=== PATIENT | female | born 1970 | race Caucasian/White ===

== ENCOUNTER 2016-09-15 18:46 | Emergency (ER) | payer MEDICAID, OTHER ==
[~2016-09-15] VITALS: Ht 160 cm; Wt 81.0 kg
[~2016-09-15 18:46] MED LIST: DIAZ5TAB PO
[2016-09-15 18:52] VITALS: BP 95/65; PULSE 83; RESP 18; TEMP 98.3; O2SAT 98
[2016-09-15] MEDS ORDERED: FLUT1SPR5 EACH NARE (20:46)
--- NOTE | 2016-09-15 20:46 | PD ---
HPI Chief Complaint: Cold / Flu Symptoms Time Seen by Provider: 20:44 Travel History International Travel<30 days: No Contact w/Intl Traveler<30days: No Traveled to known affect area: No History of Present Illness HPI 46-year-old female presents to the emergency department for evaluation of cough , nasal congestion, runny nose, and headache for 2 days. Patient also states she feels as though she has some swollen lymph nodes on her neck. She denies any fever, chills, nausea, vomiting, chest pain, shortness of breath, abdominal pain, diarrhea. States that she has taken ibuprofen and using Reshma pot with some improvement of symptoms. Denies any medical conditions. Denies any history of lung disease. Denies any smoking history. No recent travel or sick contacts. No other complaints. PFSH Past Medical History Anxiety: Yes Diminished Hearing: No ?: Not Past Surgical History Tonsillectomy: Yes Social History Alcohol Use: No Tobacco Use: No Substance Use: No Allergies-Medications (Allergen,Severity, Reaction): Coded Allergies: Clindamycin (Verified Allergy, Unknown, Itching, 09/15/16) Levaquin (Verified Allergy, Unknown, Itching, 09/15/16) Reported Meds & Prescriptions Reported Meds & Active Scripts Active Flonase Allergy Relief Nasal [place] (Fluticasone Nasal [place]) 50 Mcg/Act [place] 50 Mcg EACH NARE BID Reported Diazepam 5 Mg Tab 5 Mg PO BID PRN Review of Systems Except as stated in HPI: all other systems reviewed are Neg Physical Exam Narrative GENERAL: Well-nourished and well-developed pleasant female patient in no acute distress who is nontoxic appearing. SKIN: Warm and dry. HEAD: Normocephalic and atraumatic. EYES: No injection, drainage, or hyphema noted. PERRLA. EOMI. ENT: No nasal drainage noted. Oropharynx is clear and the TMs are normal with good landmarks. NECK: Supple and the trachea is midline. Positive anterior cervical lymphadenopathy. CARDIOVASCULAR: Regular rate and rhythm. RESPIRATORY: Breath sounds are equal bilaterally with no accessory muscle use, wheezing, rhonchi, or crackles. NEUROLOGICAL: Awake, alert, and oriented. Normal speech and gait. Cranial nerves are grossly intact. Data Data Last Documented VS Vital Signs Date Time Temp Pulse Resp B/P Pulse Ox O2 Delivery O2 Flow Rate FiO2 09/15/16 18:52 98.3 83 18 95/65 98 [facility] Medical Decision Making Medical Screen Exam Complete: Yes Emergency Medical Condition: Yes Differential Diagnosis Upper respiratory infection versus rhinitis versus rhinosinusitis versus bronchitis Narrative Course 46-year-old female presents to the emergency department for evaluation of cough and cold symptoms for 2 days. Patient is afebrile, vitals are stable. Physical examination is unremarkable. Patient appears very well overall. This is a viral upper respiratory infection. Discussed supportive care with the patient. Advised to follow-up with her PCP. Patient verbalizes understanding and agreement with treatment plan. Diagnosis Primary Impression: Upper respiratory infection Qualified Code: J06.9 - Upper respiratory tract infection, unspecified type Referrals: Primary Care Physician Patient Instructions: General Instructions, Upper Respiratory Infection (ED) Additional Instructions: Rest. Drink plenty of fluids. Take [id number]-[id number] Mucinex DM. Alternate Tylenol and ibuprofen as directed on the box as needed for headache. Use nasal spray as prescribed. Follow-up with your Primary Care Physician as needed. Return to the ED for any acute worsening of symptoms. Med/Other Pt SpecificInfo: No Change to Meds Scripts Fluticasone Nasal [place] (Flonase Allergy Relief Nasal [place])50 Mcg/Act Spray50 Mcg EACH NARE BID #1 BOTTLE Ref 0 Prov:Ruma Jaimes MD 09/15/16 Disposition: 01 DISCHARGE HOME Condition: Stable Leia Hastings Sep 15, 2016 20:46
[2016-09-15 21:04] VITALS: BP 98/56
== END 2016-09-15 21:06 | disposition home or self-care (01) ==
LOC: PHED 18:46
DX: J06.9 Acute upper respiratory infection, unspecified (principal); R51 Headache; R09.81 Nasal congestion
CPT/HCPCS: 99283

== ENCOUNTER 2016-09-25 17:17 | Emergency (ER) | payer OTHER, MEDICAID ==
[~2016-09-25] VITALS: Ht 160 cm; Wt 79.9 kg
[~2016-09-25 17:17] MED LIST changes: +FLUT1SPR5 EACH NARE
[2016-09-25 17:32] VITALS: BP 97/70; PULSE 81; RESP 16; TEMP 99.6; O2SAT 98
[2016-09-25] MEDS ORDERED: AMOX875T PO (19:30)
[2016-09-25] MEDS ORDERED: IBUP800T23 PO (19:30)
--- NOTE | 2016-09-25 19:30 | PD ---
HPI Chief Complaint: Facial Pain or Swelling Time Seen by Provider: 19:24 Travel History International Travel<30 days: No Contact w/Intl Traveler<30days: No Traveled to known affect area: No History of Present Illness HPI Patient is a 46-year-old female presenting to the emergency evaluation of jaw pain, sinus congestion. Patient states she's been sick for approximately 2 weeks. She states she was seen in the emergency department, she was not given any antibiotics. She continues to have sinus pain and pressure. She denies any dizziness, chest pain, shortness of breath, fever, chills, abdominal pain, nausea, vomiting. PFSH Past Medical History Anxiety: Yes Diminished Hearing: No Tetanus Vaccination: > 5 Years Influenza Vaccination: No ?: Not Past Surgical History Tonsillectomy: Yes Social History Alcohol Use: No Tobacco Use: No (QUIT 5 YRS AGO) Substance Use: No Allergies-Medications (Allergen,Severity, Reaction): Coded Allergies: Clindamycin (Verified Allergy, Unknown, Itching, 09/25/16) Levaquin (Verified Allergy, Unknown, Itching, 09/25/16) Reported Meds & Prescriptions Reported Meds & Active Scripts Active Reported Diazepam 5 Mg Tab 5 Mg PO BID PRN Review of Systems Except as stated in HPI: all other systems reviewed are Neg HENT: Positive: Headaches, Congestion, Earache (pressure) Cardiovascular: No: Chest Pain or Discomfort Respiratory: No: Shortness of Breath Gastrointestinal: No: Nausea, Vomiting, Abdominal Pain Physical Exam Narrative GENERAL: Well-nourished, well-developed patient. SKIN: Warm and dry. HEAD: Normocephalic. ENT: Mucosa pink and moist. No erythema or exudates. No uvular edema. No uvular , palatal, or tonsillar deviation. Airway patent. Nasal turbinates appear normal without nasal blood, purulent drainage or septal hematoma. Posterior pharynx with cobblestoning appearance. EARS: Bilateral pinnae and external canals appear within normal limits. Bilateral tympanic membranes without erythema, dullness or perforation. EYES: No scleral icterus. No injection or drainage. NECK: Supple, trachea midline. No JVD. Submandibular lymphadenopathy bilaterally. CARDIOVASCULAR: Regular rate and rhythm without murmurs, gallops, or rubs. RESPIRATORY: Breath sounds equal bilaterally. No accessory muscle use. GASTROINTESTINAL: Abdomen soft, non-tender, nondistended. MUSCULOSKELETAL: No cyanosis, or edema. BACK: Nontender without obvious deformity. No CVA tenderness. Data Data Last Documented VS Vital Signs Date Time Temp Pulse Resp B/P Pulse Ox O2 Delivery O2 Flow Rate FiO2 09/25/16 17:32 99.6 81 16 97/70 98 [facility] Medical Decision Making Medical Screen Exam Complete: Yes Emergency Medical Condition: Yes Interpretation(s) Vital Signs Date Time Temp Pulse Resp B/P Pulse Ox O2 Delivery O2 Flow Rate FiO2 09/25/16 17:32 99.6 81 16 97/70 98 Differential Diagnosis Sinusitis versus URI versus TMJ versus pharyngitis versus other Narrative Course Patient is a 46-year-old female presenting to the emergency room for evaluation of left jaw pain as well as sinus pressure and congestion. Patient's symptoms and ongoing for approximately 2 weeks. The jaw pain is been ongoing for about a week, patient states it comes and goes, it is worse when she tries to eat. Patient has used her Reshma pot does not use any gtyb-pzo-pemdwzk medications to alleviate the sinus congestion. At this point patient will be given a prescription for an antibiotic, she is encouraged to obtain [id number]-[id number]-[id number] Sudafed or similar agent and use as directed. Patient was encouraged return to the department for any new or worsening symptoms. Patient verbalized understanding of instructions. Diagnosis Primary Impression: Acute sinusitis Qualified Code: J01.90 - Acute sinusitis, recurrence not specified, unspecified location Additional Impression: TMJ arthralgia Qualified Code: M26.622 - Arthralgia of left temporomandibular joint Referrals: Primary Care Physician Patient Instructions: General Instructions, Sinusitis (ED) Additional Instructions: Follow-up with her primary doctor Take medications as directed Return to emergency department for any new or worsening symptoms Med/Other Pt SpecificInfo: Prescription(s) given Scripts Ibuprofen 800 Mg [id number] Mg PO Q8H PRN (Pain/Inflammation) 10 Days Ref 0 Prov:Ela Kingsley 09/25/16 Amoxicillin 875 Mg Cai105 Mg PO BID 10 Days Ref 0 Prov:Ela Kingsley 09/25/16 Disposition: 01 DISCHARGE HOME Condition: Stable Ela Kingsley Sep 25, 2016 19:30
== END 2016-09-25 19:46 | disposition home or self-care (01) ==
LOC: PHED 17:17 → PHEFT 19:46
DX: J01.90 Acute sinusitis, unspecified (principal); M26.622 Arthralgia of left temporomandibular joint
CPT/HCPCS: 99283

== ENCOUNTER 2016-12-04 19:16 | Emergency (ER) | payer OTHER, MEDICAID ==
[~2016-12-04] VITALS: Ht 160 cm; Wt 83.0 kg
[~2016-12-04 19:16] MED LIST changes: +AMOX875T PO; -FLUT1SPR5 EACH NARE; +IBUP800T23 PO
[2016-12-04 19:19] VITALS: BP 106/63; PULSE 56; RESP 14; TEMP 98.3; O2SAT 100
[2016-12-04] MEDS ORDERED: IBUPROFEN 800 MG TAB PO ONE (20:30)
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
[2016-12-04] MEDS ORDERED: ROBA500T PO (20:52)
[2016-12-04] MEDS ORDERED: IBUP800T23 PO (20:52)
[2016-12-04] MEDS ORDERED: METHOCARBAMOL 500 MG TAB PO SCH (22:00)
== END 2016-12-04 21:00 | disposition home or self-care (01) ==
LOC: PHEFT 19:16
DX: S16.1XXA Strain of muscle, fascia and tendon at neck level, initial encounter (principal); Z87.891 Personal history of nicotine dependence; V43.52XA Car driver injured in collision with other type car in traffic accident, initial encounter; Y93.89 Activity, other specified; Y92.410 Unspecified street and highway as the place of occurrence of the external cause; Y99.8 Other external cause status
CPT/HCPCS: 99283

== ENCOUNTER 2016-12-26 17:50 | Emergency (ER) | payer SELFPAY ==
[~2016-12-26] VITALS: Ht 160 cm; Wt 81.0 kg
[~2016-12-26 17:50] MED LIST changes: -AMOX875T PO; +ROBA500T PO
[2016-12-26 18:02] VITALS: BP 99/63; PULSE 80; RESP 16; TEMP 98.2; O2SAT 100
--- NOTE | 2016-12-26 18:53 | PD ---
HPI Chief Complaint: ENT Complaint Time Seen by Provider: 18:30 Travel History International Travel<30 days: No Contact w/Intl Traveler<30days: No Traveled to known affect area: No History of Present Illness HPI 46-year-old female presents to the emergency room for evaluation of left ear pain for the past 3 days. Patient states the pain shoots into the back of her head. She has not taken anything for her symptoms because she does not like taking medication. Patient states when this has happened in the past, she developed a sinus infection and needed antibiotics. She denies drainage, fever , chills, nausea, vomiting, cough, congestion, or other symptoms at this time. She cannot take Claritin or Zyrtec because it reacts with her Valium. PFSH Past Medical History Anxiety: Yes Diminished Hearing: No Immunizations Current: Yes Tetanus Vaccination: Unknown ?: Not LMP: 12/21/2016 Past Surgical History Tonsillectomy: Yes Social History Alcohol Use: No Tobacco Use: No (QUIT 5 YRS AGO) Substance Use: No Allergies-Medications (Allergen,Severity, Reaction): Coded Allergies: Clindamycin (Verified Allergy, Unknown, Itching, 12/26/16) Levaquin (Verified Allergy, Unknown, Itching, 12/26/16) Reported Meds & Prescriptions Reported Meds & Active Scripts Active Reported Diazepam 5 Mg Tab 5 Mg PO BID PRN Review of Systems Except as stated in HPI: all other systems reviewed are Neg Physical Exam Narrative GENERAL: Well-nourished, well-developed female in no acute distress. Afebrile. Ambulatory. SKIN: Focused skin assessment warm/dry. HEAD: Normocephalic. EYES: No scleral icterus. No injection or drainage. EARS: Bilateral pinnae and external canals appear within normal limits. Bilateral tympanic membranes without erythema, dullness or perforation. NECK: Supple, trachea midline. No JVD or lymphadenopathy. CARDIOVASCULAR: Regular rate and rhythm without murmurs, gallops, or rubs. RESPIRATORY: Breath sounds equal bilaterally. No accessory muscle use. Data Data Last Documented VS Vital Signs Date Time Temp Pulse Resp B/P Pulse Ox O2 Delivery O2 Flow Rate FiO2 12/26/16 18:02 98.2 80 16 99/63 100 [facility] Medical Decision Making Medical Screen Exam Complete: Yes Emergency Medical Condition: Yes Medical Record Reviewed: Yes Differential Diagnosis Sinusitis versus eustachian tube dysfunction versus otitis media versus URI Narrative Course 46-year-old female presents to the emergency room for evaluation of left ear pain for the past 3 days. Patient denies drainage, fever, nausea, vomiting. States the pain shoots into the back of her head and she knows that a bacterial sinus infection is approaching. Patient is requesting antibiotics. Physical exam is unremarkable. Left tympanic membrane is without erythema, effusion, perforation, or drainage. There is no indication for antibiotics at this time. Patient states that if she doesn't get them now she will just be back in 5 days. She was told to take mpca-fsp-[id number] intranasal sprays and follow up with her primary care physician. She understands and agrees to plan. Diagnosis Primary Impression: Eustachian tube dysfunction Qualified Code: H69.82 - Eustachian tube dysfunction, left Referrals: Primary Care Physician Patient Instructions: Eustachian Tube Dysfunction (GEN), General Instructions Additional Instructions: Rest and drink plenty of fluids. Take xzdn-crv-pxnveer intranasal spray as directed, as needed for congestion. Take ibuprofen with food as directed, as needed for pain. Follow-up with a primary care physician. Disposition: 01 DISCHARGE HOME Condition: Stable Lamar Borden December 26, 2016 18:52
== END 2016-12-26 19:21 | disposition home or self-care (01) ==
LOC: PHEFT 17:50
DX: F41.9 Anxiety disorder, unspecified (principal); H69.82 Other specified disorders of Eustachian tube, left ear; Z87.891 Personal history of nicotine dependence
CPT/HCPCS: 99282

== ENCOUNTER 2017-01-12 11:17 | Observation (INO) | payer MEDICAID, OTHER ==
[~2017-01-12] VITALS: Ht 160 cm; Wt 82.2 kg
[2017-01-12] VITALS (9 sets, daily range): BP systolic 86–96; BP diastolic 45–61; PULSE 64–89; RESP 16–20; TEMP 98.4–98.6; O2SAT 91–100
[~2017-01-12 11:17] MED LIST changes: -IBUP800T23 PO; -ROBA500T PO
--- NOTE | 2017-01-12 12:22 | PD ---
HPI Chief Complaint: Dizziness Time Seen by Provider: 12:11 Travel History International Travel<30 days: No Contact w/Intl Traveler<30days: No Traveled to known affect area: No History of Present Illness HPI 46 years old female complains of chest discomfort and dizziness. Patient states that she started having heaviness on the anterior chest wall with radiation to the neck and upper back. Patient states that she has occasionally jaw pain also. Patient states that the discomfort is not associated with exertion. Patient denies any coughing congestion fever chills. Patient denies any history of CAD. Patient denies history hypertension, diabetes, hyperlipidemia. Patient states that she stop smoking 5 years ago. Patient has family history heart disease. PFSH Past Medical History Hx Anticoagulant Therapy: No Anxiety: Yes Diabetes: No Diminished Hearing: No Immunizations Current: Yes Influenza Vaccination: No ?: Not Past Surgical History Tonsillectomy: Yes Social History Alcohol Use: No Tobacco Use: No (QUIT 5 YRS AGO) Substance Use: No Allergies-Medications (Allergen,Severity, Reaction): Coded Allergies: Clindamycin (Verified Allergy, Unknown, Itching, 01/12/17) Levaquin (Verified Allergy, Unknown, Itching, 01/12/17) Reported Meds & Prescriptions Reported Meds & Active Scripts Active Reported Diazepam 5 Mg Tab 5 Mg PO BID PRN Review of Systems General / Constitutional: No: Fever Eyes: No: Visual changes HENT: No: Headaches Cardiovascular: Positive: Chest Pain or Discomfort Respiratory: No: Shortness of Breath Gastrointestinal: No: Abdominal Pain Genitourinary: No: Dysuria Musculoskeletal: No: Pain Skin: No Rash Neurologic: No: Weakness Psychiatric: No: Depression Endocrine: No: Polydipsia Hematologic/Lymphatic: No: Easy Bruising Physical Exam Narrative GENERAL: Well-nourished, well-developed patient. SKIN: Focused skin assessment warm/dry. HEAD: Normocephalic. EYES: No scleral icterus. No injection or drainage. NECK: Supple, trachea midline. No JVD or lymphadenopathy. CARDIOVASCULAR: Regular rate and rhythm without murmurs, gallops, or rubs. RESPIRATORY: Breath sounds equal bilaterally. No accessory muscle use. GASTROINTESTINAL: Abdomen soft, non-tender, nondistended. MUSCULOSKELETAL: No cyanosis, or edema. BACK: Nontender without obvious deformity. No CVA tenderness. Neurologic exam normal. Data Data Last Documented VS Vital Signs Date Time Temp Pulse Resp B/P Pulse Ox O2 Delivery O2 Flow Rate FiO2 01/12/17 12:33 69 16 93/60 100 Room Air 01/12/17 11:25 98.4 Orders Ed Urine Pregnancytest Poc (01/12/17 11:33) Electrocardiogram (01/12/17 ) Complete Blood Count With Diff (01/12/17 12:17) Comprehensive Metabolic Panel (01/12/17 12:17) Creatine Kinase (Cpk) (01/12/17 12:17) Troponin I (01/12/17 12:17) Prothrombin Time / Inr (Pt) (01/12/17 12:17) Act Partial Throm Time (Ptt) (01/12/17 12:17) Chest, Single Ap (01/12/17 12:17) Iv Access Insert/Monitor (01/12/17 12:17) Ecg Monitoring (01/12/17 12:17) Oximetry (01/12/17 12:17) Aspirin (Aspirin) (01/12/17 12:30) Labs Laboratory Tests Test 01/12/17 12:30 White Blood Count 7.5 TH/MM3 Red Blood Count 4.28 MIL/MM3 Hemoglobin 11.4 GM/DL Hematocrit 35.0 % Mean Corpuscular Volume 81.9 FL Mean Corpuscular Hemoglobin 26.6 PG Mean Corpuscular Hemoglobin 32.5 % Concent Red Cell Distribution Width 13.7 % Platelet Count 249 TH/MM3 Mean Platelet Volume 8.5 FL Neutrophils (%) (Auto) 63.3 % Lymphocytes (%) (Auto) 25.7 % Monocytes (%) (Auto) 9.7 % Eosinophils (%) (Auto) 0.7 % Basophils (%) (Auto) 0.6 % Neutrophils # (Auto) 4.8 TH/MM3 Lymphocytes # (Auto) 1.9 TH/MM3 Monocytes # (Auto) 0.7 TH/MM3 Eosinophils # (Auto) 0.1 TH/MM3 Basophils # (Auto) 0.0 TH/MM3 CBC Comment DIFF FINAL Differential Comment Prothrombin Time 10.9 SEC Prothromb Time International 1.0 RATIO Ratio Activated Partial 24.3 SEC Thromboplast Time Sodium Level 142 MEQ/L Potassium Level 4.0 MEQ/L Chloride Level 109 MEQ/L Carbon Dioxide Level 26.1 MEQ/L Anion Gap 7 MEQ/L Blood Urea Nitrogen 9 MG/DL Creatinine 0.72 MG/DL Estimat Glomerular Filtration 87 ML/MIN Rate Random Glucose 86 MG/DL Calcium Level 8.8 MG/DL Total Bilirubin 0.5 MG/DL Aspartate Amino Transf 12 U/L (AST/SGOT) Alanine Aminotransferase 16 U/L (ALT/SGPT) Alkaline Phosphatase 85 U/L Total Creatine Kinase 78 U/L Troponin I LESS THAN 0.02 NG/ML Total Protein 7.1 GM/DL Albumin 3.3 GM/DL MDM Medical Decision Making Medical Screen Exam Complete: Yes Emergency Medical Condition: Yes Interpretation(s) 12:21 PM. EKG shows sinus rhythm nonspecific ST-T wave change. Last Impressions Chest X-Ray 01/12/17 1217 Signed Impressions: Service Date/Time: Thursday, January 12, 2017 12:22 - CONCLUSION: No acute disease. Silas Vivar MD 1326 PM. CBC within normal limit. CMP within normal limit. Cardiac enzymes are normal. Differential Diagnosis Differential diagnosis including musculoskeletal, angina, [place], PE, pneumothorax. Narrative Course 46 years old female complains of dizziness and chest discomfort. Aspirin 325 mg by mouth given. Diagnosis Primary Impression: Chest pain Qualified Code: R07.9 - Chest pain, unspecified type Benoit Barragan MD Jan 12, 2017 12:21
[2017-01-12] MEDS ORDERED: ASPIRIN 325 MG TAB PO ONE (12:30)
[2017-01-12 12:43] LABS: AUTOMATED NEUTROPHIL # 4.8 TH/MM3 (1.8-7.7); BASOPHIL % 0.6 % (0.0-2.0); EOSINOPHIL # 0.1 TH/MM3 (0-0.4); EOSINOPHIL % 0.7 % (0.0-4.0); HEMO FLAGS DIFF FINAL; LYMPH % 25.7 % (9.0-44.0); LYMPHOCYTE # 1.9 TH/MM3 (1.0-4.8); MEAN CELL VOLUME 81.9 FL (80.0-100.0); MEAN CORPUSCULAR HEMOGLOBIN 26.6 PG (27.0-34.0); MEAN CORPUSCULAR HGB CONC 32.5 % (32.0-36.0); MONO % 9.7 % (0.0-8.0); NEUT % 63.3 % (16.0-70.0); PLATELET COUNT 249 TH/MM3 (150-450); RED BLOOD COUNT 4.28 MIL/MM3 (4.00-5.30); RED CELL DISTRIBUTION WIDTH 13.7 % (11.6-17.2); WHITE BLOOD COUNT 7.5 TH/MM3 (4.0-11.0)
[2017-01-12 12:53] LABS: CHLORIDE 109 MEQ/L (98-107); SODIUM (NA) 142 MEQ/L (136-145)
[2017-01-12 12:57] LABS: ANION GAP 7 MEQ/L (5-15); BICARBONATE 26.1 MEQ/L (21.0-32.0); BLOOD UREA NITROGEN 9 MG/DL (7-18)
[2017-01-12 13:00] LABS: ALT (GPT) 16 U/L (10-53); APTT (PATIENT) 24.3 SEC (24.3-30.1); AST (GOT) 12 U/L (15-37); GLOMERULAR FILTRATION RATE 87 ML/MIN (>89); PROTHROMBIN TIME - PATIENT 10.9 SEC (9.8-11.6)
--- NOTE | 2017-01-12 13:01 | RADHPO ---
EXAM DATE/TIME: 01/12/2017 12:22 [facility] COMPARISON: No previous studies available for comparison. INDICATIONS : Chest pain, dizziness. MEDICAL HISTORY : None. SURGICAL HISTORY : Tonsillectomy. ENCOUNTER: Initial ACUITY: 4 - 6 days PAIN SCORE: 8/10 LOCATION: chest FINDINGS: A single view of the chest demonstrates the lungs to be symmetrically aerated without evidence of mas s, infiltrate or effusion. The cardiomediastinal contours are unremarkable. Osseous structures are intact. CONCLUSION: No acute disease. Silas Vivar MD on January 12, 2017 at 12:58 Board Certified Radiologist. This report was verified electronically.
[2017-01-12 13:02] LABS: TOTAL BILIRUBIN ADULT 0.5 MG/DL (0.2-1.0)
[2017-01-12 13:03] LABS: ALKALINE PHOSPHATASE 85 U/L (45-117)
[2017-01-12 13:14] LABS: CREATINE KINASE 78 U/L (26-192)
[2017-01-12] MEDS ORDERED: ACETAMINOPHEN 500 MG CPLT PO PRN ×2 (13:30→14:30)
[2017-01-12] MEDS ORDERED: SODIUM CHLORIDE 0.9% FLUSH 10 ML FLUSH IV FLUSH PRN ×2 (13:30→14:30)
[2017-01-12] MEDS ORDERED: ONDANSETRON HCL 4 MG/2 ML VIAL IV PRN ×2 (13:30→14:30)
[2017-01-12] MEDS ORDERED: NITROGLYCERIN 0.4 MG SL 25 TABS/BTL SL PRN (14:30)
[2017-01-12] MEDS ORDERED: MORPHINE SULFATE 4 MG/ML INJ IV PRN (14:30)
[2017-01-12] MEDS ORDERED: ACETAMINOPHEN/HYDROcodone 325 MG/7.5 MG TAB PO PRN (14:30)
[2017-01-12] MEDS: PANTOPRAZOLE SOD 20 MG DELAYED RELEASE TAB PO SCH (15:44)
[2017-01-12] MEDS ORDERED: PANTOPRAZOLE SODIUM 40 MG VIAL IV PUSH ONE (16:00)
--- NOTE | 2017-01-12 16:16 | HHI.HP ---
[facility] No Primary Care Physician Admission Diagnosis chest pain Diagnoses: Travel History International Travel<30 Days: No Contact w/Intl Traveler <30 Da: No Traveled to Known Affected Are: No History of Present Illness 46-year-old female with no significant past medical history other than anxiety, who presents with a three-day history of constant mid chest discomfort radiating to left posterior back. She also reports several day history of worsening fatigue, with walking. Denies any nausea or vomiting. She reports chronic shortness of breath. Denies any focal signs or symptoms. No recent medication changes. Review of Systems Performed and negative except for history of present illness and past medical history. Past Family Social History Past Medical History History of anxiety History of eustachian tube dysfunction. Has completed antibiotics for recent infection. Past Surgical History Tonsillectomy Reported Medications Reported Meds & Active Scripts Active Reported Diazepam 5 Mg Tab 5 Mg PO BID PRN Allergies: Coded Allergies: Clindamycin (Verified Allergy, Unknown, Itching, 01/12/17) Levaquin (Verified Allergy, Unknown, Itching, 01/12/17) Family History Mother with stroke at age 67. Father with heart attack in his 50s. Social History [id number] history, however quit 5 years ago. Quit drinking alcohol 10 years ago. Denies any illicit drugs. Physical Exam Vital Signs Vital Signs Date Time Temp Pulse Resp B/P Pulse Ox O2 Delivery O2 Flow Rate FiO2 01/12/17 15:51 65 16 95/55 100 Room Air 01/12/17 13:41 91 Nasal Cannula 1.00 01/12/17 13:27 89 18 86/45 91 Nasal Cannula 1 01/12/17 12:33 69 16 93/60 100 Room Air 01/12/17 12:20 16 100 Room Air 01/12/17 11:46 73 01/12/17 11:25 98.4 68 16 94/61 100 Physical Exam GENERAL: This is a well-nourished, well-developed patient, appears concerned. Alert and oriented 3. SKIN: No rashes, ecchymoses or lesions. Cool and dry. HEAD: Atraumatic. Normocephalic. No temporal or scalp tenderness. EYES: Pupils equal round and reactive. Extraocular motions intact. No scleral icterus. No injection or drainage. ENT: Nose without bleeding, purulent drainage or septal hematoma. Throat without erythema, tonsillar hypertrophy or exudate. Uvula midline. Airway patent. NECK: Trachea midline. No JVD or lymphadenopathy. Supple, nontender, no meningeal signs. CARDIOVASCULAR: Regular rate and rhythm without murmurs, gallops, or rubs. RESPIRATORY: Clear to auscultation. Breath sounds equal bilaterally. No wheezes , rales, or rhonchi. GASTROINTESTINAL: Abdomen soft, non-tender, nondistended. No hepato-splenomegaly , or palpable masses. No guarding. MUSCULOSKELETAL: Extremities without clubbing, cyanosis, or edema. No joint tenderness, effusion, or edema noted. No calf tenderness. Negative Homans sign bilaterally. NEUROLOGICAL: Awake and alert. Cranial nerves II through XII intact. Motor and sensory grossly within normal limits. Five out of 5 muscle strength in all muscle groups. Normal speech. Laboratory Laboratory Tests Test 01/12/17 12:30 White Blood Count 7.5 Red Blood Count 4.28 Hemoglobin 11.4 Hematocrit 35.0 Mean Corpuscular Volume 81.9 Mean Corpuscular Hemoglobin 26.6 Mean Corpuscular Hemoglobin 32.5 Concent Red Cell Distribution Width 13.7 Platelet Count 249 Mean Platelet Volume 8.5 Neutrophils (%) (Auto) 63.3 Lymphocytes (%) (Auto) 25.7 Monocytes (%) (Auto) 9.7 Eosinophils (%) (Auto) 0.7 Basophils (%) (Auto) 0.6 Neutrophils # (Auto) 4.8 Lymphocytes # (Auto) 1.9 Monocytes # (Auto) 0.7 Eosinophils # (Auto) 0.1 Basophils # (Auto) 0.0 CBC Comment DIFF FINAL Differential Comment Prothrombin Time 10.9 Prothromb Time International 1.0 Ratio Activated Partial 24.3 Thromboplast Time Sodium Level 142 Potassium Level 4.0 Chloride Level 109 Carbon Dioxide Level 26.1 Anion Gap 7 Blood Urea Nitrogen 9 Creatinine 0.72 Estimat Glomerular Filtration 87 Rate Random Glucose 86 Calcium Level 8.8 Total Bilirubin 0.5 Aspartate Amino Transf 12 (AST/SGOT) Alanine Aminotransferase 16 (ALT/SGPT) Alkaline Phosphatase 85 Total Creatine Kinase 78 Troponin I LESS THAN 0.02 Total Protein 7.1 Albumin 3.3 Result Diagram: 01/12/17 1230 01/12/17 1230 Imaging Last Impressions Chest X-Ray 01/12/17 1217 Signed Impressions: Service Date/Time: Thursday, January 12, 2017 12:22 - CONCLUSION: No acute disease. Silas Vivar MD Assessment and Plan Assessment and Plan //Chest pain. -EKG 1 negative. Chest x-ray no acute findings. Troponin 1 negative. -We'll admit to observation chest pain center, Trend EKGs and troponins. //Patient found to have low blood pressure in the 90s systolic, however this appears to be chronic. //Prophylaxis. SCDs. Code Status Full code Discussed Condition With Patient, nurse, ED physician Kurt Lester MD Jan 12, 2017 16:16
[2017-01-12 16:24] LABS: CREATINE KINASE 78 U/L (26-192)
--- NOTE | 2017-01-12 18:16 | EKG ---
Date Performed: 01/12/2017 Time Performed: 11:46:30 PTAGE: 46 years EKG: Sinus rhythm Normal ECG PREVIOUS TRACING : 07/14/2016 09.39 NO SIGNIFICANT CHANGE FROM PRIOR ELECTROCARDIOGRAM. DOCTOR: Vikram Chou Interpretating Date/Time 01/12/2017 18:15:56
[2017-01-12 19:19] LABS: CREATINE KINASE 71 U/L (26-192)
[2017-01-12] MEDS ORDERED: SODIUM CHLORIDE 0.9% FLUSH 10 ML FLUSH IV FLUSH SCH (21:00)
[2017-01-12] MEDS: SODIUM CHLORIDE 0.9% FLUSH 10 ML FLUSH IV FLUSH SCH (21:09)
[2017-01-12] MEDS ORDERED: ALPRAZolam 0.25 MG TAB PO ONE (23:45)
[2017-01-13] VITALS (8 sets, daily range): BP systolic 78–116; BP diastolic 59–72; PULSE 69–109; RESP 16–20; TEMP 97.3–98.8; O2SAT 98–100
--- NOTE | 2017-01-13 07:13 | EKG ---
Date Performed: 01/12/2017 Time Performed: 18:34:33 PTAGE: 46 years EKG: Baseline artifact prevents accurate interpretation of underlying rhythm although it is prob ably sinus. BORDERLINE ECG NO SIGNIFICANT CHANGE FROM PRIOR ELECTROCARDIOGRAM. PREVIOUS TRACING : 01/12/2017 15.28 DOCTOR: Vikram Chou Interpretating Date/Time 01/13/2017 07:11:45
--- NOTE | 2017-01-13 07:18 | EKG ---
Date Performed: 01/12/2017 Time Performed: 15:28:27 PTAGE: 46 years EKG: SINUS BRADYCARDIA WITH SINUS ARRHYTHMIA BORDERLINE ECG NO SIGNIFICANT CHANGE FROM PRIOR CYNTHIA CTROCARDIOGRAM. PREVIOUS TRACING : 01/12/2017 11.46 DOCTOR: Vikram Chou Interpretating Date/Time 01/13/2017 07:17:31
[2017-01-13] MEDS: SODIUM CHLORIDE 0.9% FLUSH 10 ML FLUSH IV FLUSH SCH (08:06)
[2017-01-13] MEDS: PANTOPRAZOLE SOD 20 MG DELAYED RELEASE TAB PO SCH (08:06)
--- NOTE | 2017-01-13 08:07 | HHI.PR ---
Subjective Remarks Follow up for chest pain. Patient denies any further chest pain overnight. Denies any shortness of breath this morning. She has a history of eustachian tube dysfunction but states that is not a major issue at this time as she was recently treated for an infection and normally unsteadiness only occurs when she turns her head during active infection. She does state that her blood pressure this morning was lowest it has been, but states this may be from not eating much recently. She denies feeling dizzy at rest. He does admit to getting dizzy at home when she awakens during the night to go to the bathroom. States she had a treadmill stress test 10 years ago which was normal. Objective Vitals Vital Signs Date Time Temp Pulse Resp B/P Pulse Ox O2 Delivery O2 Flow Rate FiO2 01/13/17 04:00 97.3 69 20 87/60 98 01/13/17 00:00 97.7 78 20 99/72 100 01/12/17 20:32 98 21 01/12/17 20:00 71 01/12/17 20:00 98.6 65 20 93/59 99 01/12/17 18:58 64 16 96/60 100 Room Air 01/12/17 15:51 65 16 95/55 100 Room Air 01/12/17 13:41 91 Nasal Cannula 1.00 01/12/17 13:27 89 18 86/45 91 Nasal Cannula 1 01/12/17 12:33 69 16 93/60 100 Room Air 01/12/17 12:20 16 100 Room Air 01/12/17 11:46 73 01/12/17 11:25 98.4 68 16 94/61 100 I/O 01/12/17 01/12/17 01/12/17 01/13/17 01/13/17 01/13/17 07:00 15:00 23:00 07:00 15:00 23:00 Intake Total 740 ml 0 ml Balance 740 ml 0 ml Intake Oral 740 ml 0 ml # Voids 2 1 # Bowel Movements 0 0 Result Diagram: 01/12/17 1230 01/12/17 1230 Objective Remarks GENERAL: Well-nourished, well-developed patient in no apparent distress. SKIN: Warm and dry. CARDIOVASCULAR: Normal rate 70 bpm with regular rhythm. No murmurs. RESPIRATORY: No accessory muscle use. Clear to auscultation. Breath sounds equal bilaterally. GASTROINTESTINAL: Abdomen soft, non-tender, nondistended. MUSCULOSKELETAL: No lower extremity edema bilaterally. NEUROLOGICAL: Awake and alert. Normal speech. PSYCHIATRIC: Appropriate mood and affect; insight and judgment normal. Urinary Catheter: No Vascular Central Line Catheter: No A/P Assessment and Plan 46-year-old female with: Chest pain: No recurrence overnight. Troponin 3 less than 0.02. EKGs 3 personally interpreted. EKG #1 with normal sinus rhythm and no evidence of ischemia. EKG #2 with sinus bradycardia and possible biphasic T waves in V2, but no obvious ischemia. EKG #3 with normal sinus rhythm, short OK interval, no evidence of ischemia. -Aspirin 325 mg po daily -Hold Nitro/Jenkins/morphine due to hypotension -Patient would much prefer to do a treadmill test as compared to nuclear stress test, but I informed her that this can only be done if she can do so safely without getting dizzy or lightheaded on the treadmill. See below. Will proceed with treadmill. Hypotension: Appears to be chronic upon record review. The patient's BP was even lower this morning though at 87/60 but MAP is intact at 69. Did receive Xanax last night which may have contributed to this. She does admit to some orthostatic type symptoms at home when she awakens during the night. -Orthostatic vital signs to be obtained. If these are normal and patient remains asymptomatic upon standing we'll attempt treadmill. If not will proceed with nuclear stress test. -No orthostasis evident, but patient's heart rate does significantly increase upon standing. There is some suspicion of postural tachycardia syndrome, but patient was asymptomatic upon standing denying any dizziness, lightheadedness, or palpitations. DVT prevention: SCDs. Treadmill test performed and reviewed by Dr. Chapa who states it is ok. Telemetry reviewed without significant events. Patient advised of coping strategies for anxiety including eating healthy, exercising, sleeping, reducing stress. Discharge disposition: Home in stable condition. Diet: Regular Medications: Prescription for Protonix 20 mg po bid. Patient advised to discuss anxiety with PCP and psychiatrist in regards to alternative to Valium as patient has hypotension. Activity: Regular Follow up: PCP and psychiatry. Attending Statement The exam, history, and the medical decision-making described in the above note were completed with the assistance of the mid-level provider. I reviewed and agree with the findings presented. I attest that I had a [id number] encounter with the patient on the same day, and personally performed and documented my assessment and findings in the medical record. Patient shouldn't seen this morning around 11 AM. appears comfortable. She says that chest pain is likely from reflux. She stopped taking her Prilosec one month ago, and has had discomfort ever since. Her primary care told her that Prilosec may cause kidney failure. We discussed correlation vs causation, and that many people on PPIs are chronic NSAIDS or have hx of ulcer, which complicates the study, as NSAIDS increase risk of CKD. nevertheless there is a risk for esophageal cancer in untreated reflux. advised to folluwup with PCP for this, restart PPI. Yin Erwin Jan 13, 2017 08:07 Kurt Lester MD Jan 13, 2017 14:01
[2017-01-13] MEDS ORDERED: ASPIRIN 325 MG TAB PO SCH (09:00)
[2017-01-13] MEDS ORDERED: PANT20 PO (11:59)
--- NOTE | 2017-01-13 12:07 | HHI.DCPOC ---
Discharge Care Plan Diagnosis: (1) Chest pain (2) Anxiety (3) Hypotension Your Health Problems Are: Anxiety Chest Pain Goals to Promote Your Health * To prevent worsening of your condition and complications * To maintain your health at the optimal level Directions to Meet Your Goals Take your medications as prescribed Follow your dietary instruction Follow activity as directed Keep your appointments as scheduled Take your immunizations and boosters as scheduled If your symptoms worsen call your PCP, if no PCP go to Urgent Care Center or Emergency Room Smoking is Dangerous to Your Health. Avoid second hand smoke Call the 24-hour hour crisis hotline for domestic abuse at Yin Erwin Jan 13, 2017 12:07
--- NOTE | 2017-01-15 14:32 | TR ---
Date Performed: 01/13/2017 Time Performed: 09:21:22 DOCTOR: Roger Chapa DRUG LIST: CLINICAL HISTORY: CHEST PAIN REASON FOR TEST: Chest pain REASON FOR ENDING: OBSERVATION: CONCLUSION: Patient tolerated YAYA protocol with Total Exercise Time=6:00 Maximum HM=021 % Max HR Achieved=98.0% Maximum LV=790/70. Patient did have some brief "gas"-like pain over the L chest dur ing exercise which lasted only a few seconds and self resolved. No correlating EKG changes during steven t time, but ST depressions noted in inferior leads at other times. Testing stopped secondary to fatig ue, SOB. HR increased quickly during testing. HR and BP recovered appropriately. COMMENTS: Patient exercised using the Yaya protocol. No electrocardiographic changes were seen to suggest ischemia. Hemodynamic response to exercise was normal. No significant arrhythmia was prese nt.
== END 2017-01-13 14:12 | disposition home or self-care (01) ==
LOC: PHED 11:17 → PHEDA 14:13 → PH3A 18:54
PROVIDERS: ADMIT Internal Medicine; ATTEND Internal Medicine
DX: R07.89 Other chest pain (principal); F41.9 Anxiety disorder, unspecified; I95.9 Hypotension, unspecified; Z88.1 Allergy status to other antibiotic agents; Z82.49 Family history of ischemic heart disease and other diseases of the circulatory system; Z87.891 Personal history of nicotine dependence
CPT/HCPCS: 71010; 80053; 82550; 84484; 84703; 85025; 85610; 85730; 93005; 93017; 96374; 99285; C9113; G0378

== ENCOUNTER 2017-07-12 14:31 | Emergency (ER) | payer MEDICAID ==
[~2017-07-12 14:31] MED LIST changes: -DIAZ5TAB PO; +PANT20 PO
[2017-07-12 14:32] VITALS: BP 107/66; PULSE 81; RESP 16; TEMP 97.8; O2SAT 99
--- NOTE | 2017-07-12 15:13 | PD ---
HPI Chief Complaint: Pain: Acute or Chronic Time Seen by Provider: 15:12 Travel History International Travel<30 days: No Contact w/Intl Traveler<30days: No Traveled to known affect area: No History of Present Illness HPI 47-year-old female patient presents the emergency department with left-sided neck pain, ear pressure, sinus pressure. History of chronic recurrent sinus trouble. Patient has complaints of left ear pressure and changes in hearing. Patient also has history of anxiety. She has an appointment to see an ENT coming up on 23 July. Patient denies fever, chills, but does state last week she had a rhinitis all week. Patient does have occasional cough and sore throat. She has no nausea or vomiting. She is allergic to clindamycin and Levaquin. PFSH Past Medical History Hx Anticoagulant Therapy: No Anxiety: Yes (valium) Diabetes: No Diminished Hearing: No Musculoskeletal: Yes Neurologic: Yes Psychiatric: Yes Immunizations Current: Yes Migraines: Yes (years ago) ?: Not Past Surgical History Oral Surgery: Yes (tosilectomy) Tonsillectomy: Yes Social History Alcohol Use: No Tobacco Use: No (QUIT 5 YRS AGO) Substance Use: No Allergies-Medications (Allergen,Severity, Reaction): Coded Allergies: clindamycin (Unverified Allergy, Unknown, Itching, 03/16/17) levofloxacin (Unverified Allergy, Unknown, Itching, 03/16/17) Reported Meds & Prescriptions Reported Meds & Active Scripts Active Ibuprofen 600 Mg Tab 600 Mg PO Q8H PRN Earlene Allergy (Fexofenadine HCl) 180 Mg Tab 180 Mg PO DAILY Flonase Nasal Koppel (Fluticasone Nasal Koppel) 50 Mcg/Act Koppel 100 Mcg EACH NARE BID Amoxicillin 875 Mg Tab 875 Mg PO BID 14 Days Protonix (Pantoprazole Sodium) 20 Mg Tab 20 Mg PO BID Review of Systems Except as stated in HPI: all other systems reviewed are Neg General / Constitutional: No: Fever, Chills Eyes: No: Visual changes HENT: Positive: Headaches, Vertigo (occasional light), Sore Throat, Rhinitis, Rhinorrhea, Congestion, Neck Stiffness, Neck Pain, Earache, No: Lightheadedness , Nosebleed, Masses, Gingival Bleeding, Dental Difficulties, Ear Discharge Cardiovascular: No: Chest Pain or Discomfort Respiratory: Positive: Cough (mild occasional), No: Shortness of Breath, Wheezing, Sneezing Gastrointestinal: No: Nausea, Vomiting, Diarrhea, Abdominal Pain Genitourinary: No: Dysuria Musculoskeletal: No: Pain Skin: No Rash Neurologic: No: Weakness Psychiatric: No: Depression Endocrine: No: Polydipsia Hematologic/Lymphatic: No: Easy Bruising Physical Exam Narrative GENERAL: Patient appears anxious but otherwise no acute distress. SKIN: Warm and dry. Normal color. Normal turgor. No rash. HEAD: Atraumatic. Normocephalic. She has mild tenderness with palpation along the left parietal region. EYES: Pupils equal and round. No scleral icterus. No injection or drainage. ENT: No nasal bleeding or discharge. Patient has inflamed equals membranes. Mucous membranes pink and moist. Patient has moderate sinus tenderness on the left frontal and maxillary sinuses. TMs show serous otitis bilaterally more on the left than the right. Posterior pharynx shows cobblestoning but otherwise no significant findings. NECK: Trachea midline. No bony tenderness or step-off. Patient has soft tissue tenderness and spasm along the left paraspinous muscles and scalenes. CARDIOVASCULAR: Regular rate and rhythm. RESPIRATORY: No accessory muscle use. Clear to auscultation. Breath sounds equal bilaterally. GASTROINTESTINAL: Abdomen soft, non-tender, nondistended. Hepatic and splenic margins not palpable. MUSCULOSKELETAL: Extremities without clubbing, cyanosis, or edema. No obvious deformities. NEUROLOGICAL: Awake and alert. No obvious cranial nerve deficits. Motor grossly within normal limits. Five out of 5 muscle strength in the arms and legs. Normal speech. PSYCHIATRIC: Appropriate mood and affect; insight and judgment normal. Data Data Last Documented VS Vital Signs Date Time Temp Pulse Resp B/P (MAP) Pulse Ox O2 Delivery O2 Flow Rate FiO2 07/12/17 14:32 97.8 81 16 107/66 (80) 99 MDM Medical Decision Making Medical Screen Exam Complete: Yes Emergency Medical Condition: Yes Differential Diagnosis Torticollis. Recurrent sinusitis and serous otitis. Narrative Course Patient appears medically stable at time of exam. Patient is treated with amoxicillin 875 twice a day for 14 days. Patient is given Flonase nasal spray 2 sprays each nostril daily. Patient is given Earlene 180 daily #30. Patient is given ibuprofen 600 3 times a day #30. Patient is to follow up with ENT as scheduled. Patient is recommended to use heat to the neck frequently for 20 minutes on 20 minutes off. Patient can return if symptoms worsen as needed. Diagnosis Primary Impression: Torticollis, spasmodic Additional Impressions: Eustachian tube dysfunction Qualified Codes: H69.82 - Other specified disorders of eustachian tube, left ear Acute sinusitis Qualified Codes: J01.01 - Acute recurrent maxillary sinusitis Referrals: Ear / Nose / Throat Specialist Patient Instructions: Eustachian Tube Dysfunction (GEN), General Instructions, Rhinosinusitis (ED), Spasmodic Torticollis (ED) Additional Instructions: Patient is treated with amoxicillin 875 twice a day for 14 days. Patient is given Flonase nasal spray 2 sprays each nostril daily. Patient is given Earlene 180 daily #30. Patient is given ibuprofen 600 3 times a day #30. Patient is to follow up with ENT as scheduled. Patient is recommended to use heat to the neck frequently for 20 minutes on 20 minutes off. Patient can return if symptoms worsen as needed. Med/Other Pt SpecificInfo: Prescription(s) given Scripts Ibuprofen (Ibuprofen) 600 Mg Tab 600 MG PO Q8H Y for PAIN, #30 TAB 0 Refills Prov: Milena Hernandez DO 07/12/17 Fexofenadine (Earlene Allergy) 180 Mg Tab 180 MG PO DAILY for Allergy Management, #30 TAB 0 Refills Prov: Milena Hernandez DO 07/12/17 Fluticasone Nasal Koppel (Flonase Nasal Koppel) 50 Mcg/Act Koppel 100 MCG EACH NARE BID for Allergies, #1 BOTTLE 0 Refills Prov: Milena Hernandez DO 07/12/17 Amoxicillin (Amoxicillin) 875 Mg Tab 875 MG PO BID for Infection for 14 Days, #28 TAB 0 Refills Prov: Milena Hernandez DO 07/12/17 Disposition: 01 DISCHARGE HOME Condition: Stable Erasmo Castellanos Jul 12, 2017 15:13
[2017-07-12] MEDS ORDERED: AMOX875T PO (15:26)
[2017-07-12] MEDS ORDERED: FEXO15TA PO (15:26)
[2017-07-12] MEDS ORDERED: FLUT1SPR5 EACH NARE (15:26)
[2017-07-12] MEDS ORDERED: IBUP-232 PO (15:26)
== END 2017-07-12 16:03 | disposition home or self-care (01) ==
LOC: NEPD 14:31
DX: M43.6 Torticollis (principal); H69.82 Other specified disorders of Eustachian tube, left ear; J01.01 Acute recurrent maxillary sinusitis; Z87.891 Personal history of nicotine dependence
CPT/HCPCS: 99283